=== PATIENT | male | born 1995 | race Caucasian/White ===

== ENCOUNTER 2018-03-22 13:48 | Outpatient (CLI) | payer OTHER ==
--- NOTE | 2018-03-22 14:43 | Diagnostic Imaging Report ---
BRICE SMITH [facility] [address] [facility] [address] [address] Report Submission Date: Mar 22, 2018 2:25:18 PM SECURITY ASSOCIATE Patient Study Name: ROSANA MOORE Date: Mar 22, 2018 1:45:23 PM SECURITY ASSOCIATE Modality Type: DX Gender: M Description: LOWER EXTREMITY : 89 Institution: [facility] Physician: BRICE SMITH Left foot at weight-bearing History: Chronic foot Three views of the left foot were obtained weight-bearing which demonstrate 3 concepción involving the 1st cuneiform. Otherwise, no osseous abnormalities are noted. Mineralization and alignment is normal aside from the presence of a pes planus. Impression: Pes planus. Three concepción associated with the 1st cuneiform. Electronically signed on Mar 22, 2018 2:25:18 PM SECURITY ASSOCIATE by: Carli Felipe Addendum: Please disregard the prior report. The following is the correct report. Bilateral feet History: Chronic bilateral foot pain Three views of each foot were obtained which demonstrate 2 concepción involving the left 1st cuneiform. There is left pes planus. Otherwise, no osseous abnormalities of the left foot are noted. With regard to the right foot, there are 3 concepción of the 1st cuneiform. There is pes planus. No additional osseous abnormalities of the right foot are noted. Impression: Surgical concepción are present of the 1st cuneiform bilaterally. There is bilateral pes planus. Otherwise, no additional osseous abnormalities are noted. Addendum electronically signed by Carli Felipe on March 22, 2018 2:39:36 PM [facility]
--- NOTE | 2018-03-22 14:43 | Diagnostic Imaging Report ---
BRICE SMITH [facility] [address] [facility] [address] [address] Report Submission Date: Mar 22, 2018 2:22:08 PM MULTIPLE DRILL OPERATOR Patient Study Name: ROSANA MOORE Date: Mar 22, 2018 1:53:10 PM MULTIPLE DRILL OPERATOR Modality Type: DX Gender: M Description: LOWER EXTREMITY : 89 Institution: [facility] Physician: BRICE SMITH Right ankle History: Chronic pain Three views of the right ankle demonstrate no osseous abnormalities. The talar dome and ankle mortise are intact. Impression: No osseous abnormality. Electronically signed on Mar 22, 2018 2:22:08 PM MULTIPLE DRILL OPERATOR by: aCrli MURPHY
== END 2018-03-22 13:50 ==
LOC: RAD 13:48
PROVIDERS: ATTEND Podiatrist Foot & Ankle Surgery
DX: M79.671 Pain in right foot (principal); M79.672 Pain in left foot; M25.571 Pain in right ankle and joints of right foot
CPT/HCPCS: 73610